=== PATIENT | male | born 1960 | race Caucasian/White ===

== ENCOUNTER 2023-03-09 09:00 | Outpatient (RCR) | payer OTHER, SELFPAY | END 2023-03-29 08:59 | disposition home or self-care (01) | PROVIDERS: PCP Family Medicine; Visit Provider Physician Assistant | DX: M47.816 Spondylosis without myelopathy or radiculopathy, lumbar region (principal); M54.42 Lumbago with sciatica, left side; G89.29 Other chronic pain; Z51.89 Encounter for other specified aftercare | CPT/HCPCS: 97110; 97140; 97162 ==

== ENCOUNTER 2024-11-15 06:11 | Day surgery (SDC) | payer MEDICARE, BC, SELFPAY ==
[2024-11-15] VITALS (18 sets, daily range): BP systolic 87–127; BP diastolic 54–85; PULSE 48–73; RESP 15–20; TEMP 35.9–36.8; O2SAT 90–97; BMI 30.4
[2024-11-15] MEDS: OXYCODONE (CR) 10 MG TAB.ER.12H PO (06:19)
[2024-11-15] MEDS: ACETAMINOPHEN 500 MG TABLET 1000 MG PO (06:19)
[2024-11-15] MEDS: SODIUM CHLORIDE 0.9 % (FLUSH) 10 ML SYRINGE IVF (06:50)
[2024-11-15] MEDS: LACTATED RINGERS 1000 ML 1,000 ML 100 ML IV ×2 (06:50→10:31)
[2024-11-15] MEDS: fentaNYL 100 MCG/2 ML inj IVP (07:14)
[2024-11-15] MEDS: MIDAZOLAM HCL 1 MG/ML inj IVP (07:14)
--- NOTE | 2024-11-15 07:19 | SUR.PREOP ---
TIME?OUT:? 711, left knee PT/RN/MDA?VERIFICATION?OF?SURGICAL?SITE,?PROCEDURE,?AND?CONSENT OBTAINED?PRIOR?TO?INVASIVE?PROCEDURE.
--- NOTE | 2024-11-15 07:31 | W.PM.H&PU ---
History & Physical Update History & Physical Update H&P Reviewed and patient assessed: No changes noted
[2024-11-15] MEDS: TRANEXAMIC ACID 100 MG/ML INJ 1000 MG IV (07:40)
[2024-11-15] MEDS: CEFAZOLIN 2 GM in 0.9 % SODIUM CHLORIDE Mini-bag 100 ML IVPB (07:44)
--- NOTE | 2024-11-15 08:40 | P.NB_ITS ---
Nerve Block Nerve Block Time Seen by Provider: 07:16 Date Seen: 11/15/24 Type of block requested by surgeon for post-operative analgesia: adductor canal Side: left Time out performed: Yes Verification of patient name: Yes Verification of date of : Yes Site marking: site marked Name of person performing procedure: Chicho Continuous monitoring Was continuous monitoring of O2 sat, B/P, film drying machine operator, recorded every 15 minutes?: Yes Procedure Checklist: sterile prep, needles and gloves Ultrasound guided. Images saved: Yes Medications given in 5ml increments after negative aspiration: Marcaine %: 0.25 mL: 15 Needle gauge: 20 Precedex (mcg): 25 Patient tolerated procedure well: Yes Block Charges Block Charge (with Pro Fee): Femoral Nerve Use of Ultrasound Machine for Block: Yes- US Guidance/pain block
--- NOTE | 2024-11-15 08:40 | P.NB_ITS ---
Nerve Block Nerve Block Time Seen by Provider: 07:16 Date Seen: 11/15/24 Type of block requested by surgeon for post-operative analgesia: geniculars Side: left Time out performed: Yes Verification of patient name: Yes Verification of date of : Yes Site marking: site marked Name of person performing procedure: Chicho Continuous monitoring Was continuous monitoring of O2 sat, B/P, rn cardiac, recorded every 15 minutes?: Yes Procedure Checklist: sterile prep, needles and gloves Ultrasound guided. Images saved: Yes Medications given in 5ml increments after negative aspiration: Marcaine %: 0.25 mL: 9 Needle gauge: 25 Patient tolerated procedure well: Yes Block Charges Block Charge (with Pro Fee): Genicular Nerve Block
--- NOTE | 2024-11-15 08:41 | P.ANES_ITS ---
Anesthesia Charges Start Date/Time Anesthesia Start Date: 11/15/24 Anesthesia Start Time: 07:27 Stop Date/Time Anesthesia Stop Date: 11/15/24 Anesthesia Stop Time: 09:42 Coding CPT Codes CPT Codes: ANESTH KNEE ARTHROPLASTY - 17432 ([id number]) P2 - PATIENT W/MILD SYST DISEASE, QK - WELDER EXPERIMENTAL 2-4 CNCRNT ANES PROC, QX - PROOFREADER SVC W/ MD MED DIRECTION
--- NOTE | 2024-11-15 08:41 | W.ANESCHARGE ---
Anesthesia Charges Start Date/Time Anesthesia Start Date: 11/15/24 Anesthesia Start Time: 07:27 Stop Date/Time Anesthesia Stop Date: 11/15/24 Anesthesia Stop Time: 09:42 Coding CPT Codes CPT Codes: ANESTH KNEE ARTHROPLASTY - 30510 ([id number]) P2 - PATIENT W/MILD SYST DISEASE, QK - WORK ORDER DETAILER 2-4 CNCRNT ANES PROC, QX - HOSPICE CASE MANAGER SVC W/ MD MED DIRECTION
--- NOTE | 2024-11-15 09:03 | PM.ORPRC ---
Procedure Note Date of procedure: 11/15/24 Procedure: PREOPERATIVE DIAGNOSIS: 1. Left knee osteoarthritis, primary, severe POSTOPERATIVE DIAGNOSIS: 1. Left knee osteoarthritis, primary, severe PROCEDURE: 1. Left total knee arthroplasty SURGEON: Rajesh Manning MD. LAMP INSPECTOR: Garry Marti PA-C - Of note, a skilled assistant womens volleyball coach was critical for this case to aid in patient positioning, tissue retraction, limb manipulation/positioning, and closure. ANESTHESIA: Spinal anesthetic EBL: 50ml IMPLANTS: DePuy J&J uncemented TKA - Attune PS femur size 9 Size 6 tibia 8 poly spacer 38 mm Affixium patella TOURNIQUET: 80 minutes at 300 torr COMPLICATIONS: None evident INDICATIONS: The patient is a pleasant 64-year-old male who has experienced severe left knee pain and difficulty bearing weight. Workup included x-rays which revealed severe osteoarthrosis in the knee. Given the deformity, the dysfunction, and the pain, as well as the failure of nonoperative management, recommendation was made for surgery. FINDINGS: Full-thickness chondral loss diffusely throughout the medial and patellofemoral compartments and to a lesser degree lateral compartment. Degenerative meniscus pathology medial greater than lateral. Small effusion upon entering the joint. DESCRIPTION OF PROCEDURE: Following a thorough discussion of risks, benefits, and alternatives consent was obtained and the left knee was marked. The patient was brought to the operating room and placed supine on the operating table. Induction of anesthesia was undertaken. 2 g IV Ancef and 1 g tranexamic acid was administered within 1 hr of incision preoperatively. Proper time-out was performed identifying proper patient, site, procedure. The operative extremity was prepped and draped in the appropriate sterile fashion using ChloraPrep after the patient was positioned supine with all bony prominences well padded. A longitudinal, anterior, midline skin incision was made starting approximately 3cm proximal to the superior pole of the patella and advanced distal to the tibial tubercle. A sub vastus approach was utilized . After mobilizing the patella, retropatellar fatpad was resected and the synovium in the suprapatellar pouch excised to visualize the anterior femoral cortex. Patellar prep showed initial measurement/thickness of 24 mm. It was resected back to approximately 14 mm. The patella prep was completed with drilling and a trial placed. Femoral preparation was performed via an intramedullary guide. Step drill allowed access into the femoral canal. The distal cutting guide was placed with 5? of valgus and 12 mm cut on the distal femur. Femur was sized using a anterior referencing guide in 3? of external rotation. This found have a best fit with the sizing noted above. The 4 in 1 cutting block was then placed, and the distal femur shaped accordingly. The box cut was then created and the trial implant inserted to confirm appropriate fit. We turned our attention to the proximal tibia. Extramedullary guide was utilized for cutting with the goal of being 90 degree cut from the mechanical axis of the tibia in the varus/valgus plane utilizing tibial crest as the primary alignment. Initially a 2 mm resection was performed from the medial tibial plateau. Ultimately, balancing was achieved in both flexion and extension in both varus and valgus. The knee was able to achieve full extension comfortably. It was sized to be a best fit with as noted above. At this stage, trial implants were removed, the tibia and femoral and patellar components were opened and inserted as was the patellar component. The real poly spacer was opened and inserted. A 3 min Betadine soak performed. Finally, a final irrigation round with normal saline was performed. Closure performed with 0 PDS and #0 Stratafix for the quad tendon/retinaculum. 2-0 Vicryl/Stratafix for the subcutaneous and 4-0 Monocryl for subcuticular closure. Dressings were applied and the patient was awoken from anesthesia after the tourniquet deflated and transferred the PACU in stable condition. A skilled assistant womens volleyball coach was critical for this case to aid in patient positioning, tissue retraction, bone exposure, limb manipulation/positioning, patient safety, and closure. PLAN: 1. Weight bear as tolerated operative extremity. 2. 23 hr perioperative antibiotics. 3. Ice. 4. PT/OT consults for ambulation assistance/mobility education. 5. Social work consult for discharge planning. 6. DVT prophylaxis with at SCDs, and aspirin twice daily.
--- NOTE | 2024-11-15 09:40 | CRLHL7_ITS ---
For Patients: As a result of the Cures Act, medical imaging exams and procedure reports are released immediately into your electronic medical record. You may view this report before your referring provider. If you have questions, please contact your health care provider. Indication: Total knee arthroplasty Technique: Two views left knee Findings/Impression: Hardware from a left total knee arthroplasty is in satisfactory position. Bone alignment is normal. No sign of acute fracture. Postop changes are within normal limits. Dictated by Manish Patricio MD @ 11/15/2024 9:58:34 AM (Electronically Signed)
--- NOTE | 2024-11-15 09:51 | P.ANES_ITS ---
Anesthesia Charges Start Date/Time Anesthesia Start Date: 11/15/24 Anesthesia Start Time: 07:27 Stop Date/Time Anesthesia Stop Date: 11/15/24 Anesthesia Stop Time: 09:42 Coding CPT Codes CPT Codes: ANESTH KNEE ARTHROPLASTY - 36585 ([id number]) P2 - PATIENT W/MILD SYST DISEASE, QK - PRESS OFFICER 2-4 CNCRNT ANES PROC, QX - TRACK REPAIR PERSON SVC W/ MD MED DIRECTION
--- NOTE | 2024-11-15 09:51 | W.ANESCHARGE ---
Anesthesia Charges Start Date/Time Anesthesia Start Date: 11/15/24 Anesthesia Start Time: 07:27 Stop Date/Time Anesthesia Stop Date: 11/15/24 Anesthesia Stop Time: 09:42 Coding CPT Codes CPT Codes: ANESTH KNEE ARTHROPLASTY - 40501 ([id number]) P2 - PATIENT W/MILD SYST DISEASE, QK - DOOR MANAGER 2-4 CNCRNT ANES PROC, QX - LEAD CAREGIVER SVC W/ MD MED DIRECTION
--- NOTE | 2024-11-15 13:02 | SUR.PHASEII ---
pt to PT 12:50
[2024-11-15] MEDS: ACETAMINOPHEN 325 MG TABLET PO (14:00)
[2024-11-15] MEDS: IBUPROFEN 200 MG TABLET 400 MG PO (14:21)
== END 2024-11-15 14:19 | disposition home or self-care (01) ==
LOC: OR 06:13
PROVIDERS: PCP Family Medicine; Visit Provider Orthopaedic Surgery Sports Medicine
PROC: (CPT 27447; principal; 2024-11-15 07:30)
DX: M17.12 Unilateral primary osteoarthritis, left knee (principal); G89.18 Other acute postprocedural pain; R73.03 Prediabetes; E78.5 Hyperlipidemia, unspecified
CPT/HCPCS: 27447; 01402; 64447; 64454; 73560; 76942; 97110; 97116; 97161; 97530; A9270; C1776; J0665; J0690; J1100; J2250; J2371; J2405; J2704; J3010; J7120